=== PATIENT | female | born 2000 | race Two or more races ===

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

== ENCOUNTER 2024-02-04 18:33 | Emergency (ER) | payer MEDICAID, OTHER ==
[~2024-02-04] VITALS: Ht 152.4 cm; Wt 42.5 kg
[2024-02-04 19:30] VITALS: BP 113/74; PULSE 73; RESP 18; TEMP 97.6; O2SAT 99
[2024-02-04] MEDS ORDERED: IBUP1TAB4 PO (22:09)
[2024-02-04] MEDS ORDERED: CYCL-837 PO (22:09)
[2024-02-04] MEDS: CYCLOBENZAPRINE HCL 10 MG TAB PO ONE (22:15)
[2024-02-04] MEDS: IBUPROFEN 400 MG TAB PO ONE (22:15)
== END 2024-02-04 22:18 | disposition home or self-care (01) ==
LOC: ER 18:33
DX: S40.812A Abrasion of left upper arm, initial encounter (principal); V43.62XA Car passenger injured in collision with other type car in traffic accident, initial encounter; Y93.89 Activity, other specified; Y92.488 Other paved roadways as the place of occurrence of the external cause; Y99.8 Other external cause status